=== PATIENT | female | born 1970 | race Caucasian/White ===

== ENCOUNTER 2017-03-01 03:16 | Emergency (ER) | payer BC, MEDICAID ==
[2017-03-01 06:10] VITALS: BP 120/72
== END 2017-03-01 06:10 | disposition home or self-care (01) ==
LOC: ED 03:16
DX: M54.41 Lumbago with sciatica, right side (principal); R51 Headache; Z90.710 Acquired absence of both cervix and uterus

== ENCOUNTER 2017-09-30 09:21 | Emergency (ER) | payer MEDICAID ==
[~2017-09-30] VITALS: Ht 162.6 cm; Wt 103.9 kg
[2017-09-30 09:25] VITALS: Ht 162.6 cm; Wt 103.9 kg
[2017-09-30 10:17] LABS: BASOPHIL % 0.6 % (0-2); PLATELET COUNT 192 x10^3mcL (130-400); RED CELL DISTRIBUTION WIDTH 12.7 % (11.5-14.5)
[2017-09-30 10:29] LABS: CALCIUM 8.7 mg/dL (8.5-10.1); CARBON DIOXIDE 30.3 mmol/L (21-32); CHLORIDE SERUM 106 mmol/L (98-107); CREATININE SERUM 0.9 mg/dL (0.6-1.0); GFR1 > 60 mL/min; GLUCOSE SERUM 106 mg/dL (74-106); POTASSIUM SERUM 4.1 mmol/L (3.5-5.1); SODIUM SERUM 143 mmol/L (136-145)
[2017-09-30 10:42] LABS: ALBUMIN 3.5 g/dL (3.4-5.0); ALKALINE PHOSPHATASE 88 U/L (46-116); ALT/SGPT 37 U/L (14-59); AMYLASE 62 U/L (25-115); AST/SGOT 22 U/L (15-37); BILIRUBIN TOTAL 0.5 mg/dL (0.20-1.00); HDL CHOLESTEROL 35 mg/dL (40-60); LIPASE 95 IU/L (73-393); T4(THYROXINE) 5.7 ug/dL (4.7-13.3); TOTAL PROTEIN, SERUM 7.5 g/dL (6.4-8.2)
[2017-09-30 10:43] LABS: CHOLESTEROL 217 mg/dL (<200)
[2017-09-30 10:52] LABS: microscopic required? YES; urine erythrocyte TRACE (NEGATIVE)
[2017-09-30 12:31] VITALS: BP 116/72
== END 2017-09-30 12:31 | disposition home or self-care (01) ==
LOC: ED 09:21
PROVIDERS: Emergency Medicine
DX: N39.0 Urinary tract infection, site not specified (principal); M54.9 Dorsalgia, unspecified; J45.909 Unspecified asthma, uncomplicated; E66.9 Obesity, unspecified; Z90.710 Acquired absence of both cervix and uterus
CPT/HCPCS: 83880; J1100; J1885; Q0092

== ENCOUNTER 2017-11-01 02:00 | Emergency (ER) | payer MEDICAID ==
[~2017-11-01] VITALS: Ht 157.5 cm; Wt 101.6 kg
[2017-11-01 02:08] VITALS: Ht 157.5 cm; Wt 101.6 kg
[2017-11-01 05:54] LABS: BASOPHIL % 0.4 % (0-2); PLATELET COUNT 209 x10^3mcL (130-400); RED CELL DISTRIBUTION WIDTH 12.7 % (11.5-14.5)
[2017-11-01 05:59] LABS: CALCIUM 7.7 mg/dL (8.5-10.1); CARBON DIOXIDE 26.5 mmol/L (21-32); CHLORIDE SERUM 106 mmol/L (98-107); CREATININE SERUM 0.7 mg/dL (0.6-1.0); GFR1 > 60 mL/min; GLUCOSE SERUM 100 mg/dL (74-106); POTASSIUM SERUM 3.9 mmol/L (3.5-5.1); SODIUM SERUM 139 mmol/L (136-145)
[2017-11-01 06:04] LABS: ALBUMIN 3.6 g/dL (3.4-5.0); ALKALINE PHOSPHATASE 70 U/L (46-116); ALT/SGPT 26 U/L (14-59); AST/SGOT 18 U/L (15-37); BILIRUBIN TOTAL 0.5 mg/dL (0.20-1.00); MAGNESIUM 2.1 mg/dL (1.8-2.4); TOTAL PROTEIN, SERUM 7.1 g/dL (6.4-8.2)
[2017-11-01 07:54] VITALS: BP 119/72
== END 2017-11-01 07:50 | disposition home or self-care (01) ==
LOC: ED 02:00
PROVIDERS: Emergency Medicine
DX: G56.03 Carpal tunnel syndrome, bilateral upper limbs (principal); Z90.710 Acquired absence of both cervix and uterus
CPT/HCPCS: 36415

== ENCOUNTER 2018-02-15 04:40 | Emergency (ER) | payer MEDICAID ==
[~2018-02-15] VITALS: Ht 157.5 cm; Wt 97.5 kg
[2018-02-15 04:46] VITALS: Ht 157.5 cm; Wt 97.5 kg
[2018-02-15 05:25] LABS: UA SPECIFIC GRAVITY 1.025 (1.005-1.035); microscopic required? YES; urine erythrocyte 1+ (NEGATIVE)
[2018-02-15 05:40] VITALS: BP 107/72
== END 2018-02-15 05:40 | disposition home or self-care (01) ==
LOC: ED 04:40
PROVIDERS: Emergency Medicine
DX: N39.0 Urinary tract infection, site not specified (principal); N89.8 Other specified noninflammatory disorders of vagina; Z90.710 Acquired absence of both cervix and uterus

== ENCOUNTER 2018-09-23 16:18 | Emergency (ER) | payer MEDICAID ==
[~2018-09-23] VITALS: Ht 157.5 cm; Wt 105.7 kg
[2018-09-23 16:31] VITALS: Ht 157.5 cm; Wt 105.7 kg
[2018-09-23 18:37] VITALS: BP 133/86
== END 2018-09-23 18:37 | disposition home or self-care (01) ==
LOC: ED 16:18
DX: J06.9 Acute upper respiratory infection, unspecified (principal); H10.89 Other conjunctivitis; N39.0 Urinary tract infection, site not specified
CPT/HCPCS: J1885; Q0092